=== PATIENT | female | born 1980 | race Caucasian/White ===

== ENCOUNTER 2020-05-01 08:37 | Outpatient (CLI) | payer BC, SELFPAY ==
[2020-05-01 09:09] LABS: Basophils Percent Auto 0.5 % (0.2-1.2); Eosinophils Absolute Auto 0.1 K/mm3 (0-0.3); Eosinophils Percent Auto 1.8 % (0-4.4); Hematocrit 41.3 % (37.0-47.0); Lymphocytes Absolute Auto 2.58 K/mm3 (0.9-3.2); Lymphocytes Percent Auto 42.9 % (18.3-44.2); Mean Corpuscular HGB Conc 31.5 g/dl (32-36); Mean Corpuscular Hemoglobin 25.1 pg (26-34); Mean Corpuscular Volume 79.7 fl (80-100); Mean Platelet Volume 10.9 fl (7.4-10.4); Monocytes Absolute Auto 0.6 K/mm3 (0.1-0.6); Monocytes Percent Auto 9.8 % (2.6-8.5); Neutrophils Absolute Auto 2.7 K/mm3 (1.3-6.7); Platelet Count Result 229 k/mm3 (150-375); Red Blood Count 5.18 M/mm3 (4.2-5.4); Red Cell Distribution Width 15.3 % (11.5-14.5)
[2020-05-01 09:22] LABS: Alanine Aminotransferase 23 U/L (4-35); Albumin Level 4.5 g/dL (3.5-5.1); Alkaline Phosphatase 54 U/L (38-126); Anion Gap 8 mmol/L (8-16); Aspartate Amino Transferase 25 U/L (14-36); Bilirubin,Total 0.4 mg/dL (0.2-1.3); Blood Urea Nitrogen 18 mg/dL (7-17); Calcium 8.9 mg/dL (8.4-10.2); Carbon Dioxide 26 mmol/L (22-30); Chloride 105 mmol/L (98-107); Cholesterol 190 mg/dL (0-200); Estimated Glomerular Filt Rate > 60; Glucose 90 mg/dL (65-105); HDL Direct 78 mg/dL; Potassium 4.1 mmol/L (3.4-5.0); Sodium 139 mmol/L (137-145); Triglycerides 93 mg/dL (<150)
[2020-05-01 09:33] LABS: LDL Cholesterol Direct 85 mg/dL
== END 2020-05-01 08:38 | disposition home or self-care (01) ==
PROVIDERS: PCP Internal Medicine; Visit Provider Nurse Practitioner
DX: Z13.228 Encounter for screening for other metabolic disorders (principal); Z13.220 Encounter for screening for lipoid disorders
CPT/HCPCS: 36415; 80053; 80061; 85025

== ENCOUNTER → 2020-05-16 09:49 | Outpatient (CLI) | payer BC, SELFPAY ==
--- NOTE | ~2020-05-16 | MM_ITS ---
EXAMINATION: MM screening [facility] BI w jayson HISTORY: Screening TECHNIQUE: Craniocaudal and mediolateral oblique 3-D tomosynthesis images were obtained and synthetic 2-D images were generated. CAD analysis was submitted and interpreted. COMPARISON: Comparison to multiple prior studies sequentially, with oldest reviewed study dated 02/16. BREAST PARENCHYMAL COMPOSITION: The breasts are heterogeneously dense, which may obscure small masses . FINDINGS: Stable benign-appearing fat-containing mass in the lower inner quadrant of the right breast . Stable right breast calcifications. There is no evidence of suspicious mass, calcification, or arch itectural distortion to suggest malignancy in either breast. There has been no suspicious interval ch allison. IMPRESSION: 1. No mammographic evidence of malignancy. 2. Recommend routine screening mammography in one year. BI-RADS Category 2: Benign finding(s). Reviewed, dictated and finalized at location A. HER DUSTER WINDER
== END ==
DX: Z12.31 Encounter for screening mammogram for malignant neoplasm of breast (principal)
CPT/HCPCS: 77063; 77067

== ENCOUNTER 2022-07-23 17:29 | Emergency (ER) | payer OTHER, SELFPAY ==
--- NOTE | ~2022-07-23 | XR_ITS ---
XR chest 2V DATE: 07/23/2022 18:10 INDICATION: Chest pain, palpitations, shortness of breath, chest tightness/pressure TECHNIQUE: PA and lateral views COMPARISON: None FINDINGS: There are bilateral calcified pulmonary granulomas. No pulmonary infiltrate or consolidatio n, pleural effusion or pulmonary vascular congestion or pneumothorax. Normal heart size. No hilar or mediastinal enlargement. Included skeletal structures are unremarkable. IMPRESSION: No active cardiopulmonary disease Reviewed, dictated and finalized at location A.
--- NOTE | 2022-07-23 17:31 | ECG_ITS ---
Measurements Intervals [place] Rate: 65 P: 54 IL: 162 QRS: 3 QRSD: 86 T: 25 QT: 381 QTc: 399 Interpretive Statements SINUS RHYTHM WITH SINUS ARRHYTHMIA POOR R-WAVE PROGRESSION BORDERLINE ECG NO PREVIOUS ECG AVAILABLE FOR COMPARISON Electronically Signed On 07-24-2022 15:06:16 CDT by Jovany Marrero M.D.
[2022-07-23 17:34] VITALS: BP 152/87; PULSE 84; RESP 18; TEMP 36.5; O2SAT 100
[2022-07-23 17:51] LABS: Basophils Percent Auto 0.6 % (0.2-1.2); Eosinophils Absolute Auto 0.2 K/mm3 (0-0.3); Eosinophils Percent Auto 2.4 % (0-4.4); Hemoglobin 12.8 g/dL (12.0-15.0); Immature Granulocyte Absolute 0.01 K/mm3 (0.00-0.031); Immature Granulocyte Percent A 0.2 % (0-0.5); Lymphocytes Absolute Auto 2.55 K/mm3 (0.9-3.2); Lymphocytes Percent Auto 40.9 % (18.3-44.2); Mean Corpuscular Hemoglobin 27.6 pg (26-34); Mean Corpuscular Volume 86.4 fl (80-100); Mean Platelet Volume 9.8 fl (7.4-10.4); Monocytes Absolute Auto 0.4 K/mm3 (0.1-0.6); Monocytes Percent Auto 7.1 % (2.6-8.5); Neutrophils Absolute Auto 3.1 K/mm3 (1.3-6.7); Neutrophils Percent Auto 48.8 % (45.5-73.1); Platelet Count Result 248 k/mm3 (150-375); Red Blood Count 4.63 M/mm3 (4.2-5.4); White Blood Count 6.2 K/mm3 (4.5-10.0)
[2022-07-23 18:01] LABS: Alanine Aminotransferase 16 U/L (6-35); Albumin Level 4.6 g/dL (3.5-5.1); Alkaline Phosphatase 71 U/L (38-126); Anion Gap 10 mmol/L (8-16); Aspartate Amino Transferase 24 U/L (14-36); Bilirubin,Total 0.5 mg/dL (0.2-1.3); Blood Urea Nitrogen 15 mg/dL (7-17); Calcium 8.8 mg/dL (8.4-10.2); Carbon Dioxide 21 mmol/L (22-30); Chloride 104 mmol/L (98-107); Estimated CRCL calculation 75 ml/min; Estimated Glomerular Filt Rate > 60; Glucose 97 mg/dL (65-110); Lipase 47 U/L (23-300); Sodium 135 mmol/L (137-145)
[2022-07-23 18:06] LABS: INR 1.1; Prothrombin Time 13.4 Seconds (11.1-14.7)
[2022-07-23 18:07] LABS: Partial Thromboplastin Time 28.7 SECONDS (22.3-36.8)
[2022-07-23 18:12] LABS: Troponin I < 0.012 ng/mL (0.000-0.034)
[2022-07-23 19:24] VITALS: BP 124/74; PULSE 83; RESP 18; TEMP 36.6; O2SAT 100
--- NOTE | 2022-07-23 19:27 | PC.NURSE ---
Pt asked for updates and how long wait is. Pt states she feels better and asked if she can go home. Advised pt that there is still an order to redraw her 2nd cardiac lab at 2044 but we cannot hold her here if she wants to go. Pt states that she wants to go home because she feels better. Instructed pt to seek immediate medical attention if she develops new/worsening pain, SOB, nausea, vomiting, dizziness, or sweating. Pt verbalized understanding and ambulated out of department with steady gait.
== END 2022-07-23 19:47 | disposition left against medical advice (07) ==
PROVIDERS: Emergency Provider Emergency Medicine; PCP Physician Assistant
DX: R00.2 Palpitations (principal)
CPT/HCPCS: 36415; 71046; 80053; 83690; 84484; 85025; 85610; 85730; 93005; 99199

== ENCOUNTER 2022-08-16 15:41 | Emergency (ER) | payer OTHER, SELFPAY ==
[2022-08-16] VITALS (10 sets, daily range): BP systolic 119–145; BP diastolic 78–88; PULSE 58–81; RESP 12–22; TEMP 36.7; O2SAT 99–100
--- NOTE | ~2022-08-16 | XR_ITS ---
EXAMINATION: XR chest 2V Exam Date/Time: 08/16/2022 16:30 CDT HISTORY: chest pressure AND PAIN FOR 3 WKS PROGRESSIVELYGETTING WORSE Comparison: 07/23/2022. RESULT: Lines, tubes, and devices: None. Lungs and pleura: Bilateral calcified granulomas, otherwise clear. Cardiomediastinal silhouette: Stable. Other: No acute osseous or upper abdominal finding. IMPRESSION: No acute cardiopulmonary process. Reviewed, dictated and finalized at location K.
--- NOTE | 2022-08-16 15:42 | ECG_ITS ---
Measurements Intervals [place] Rate: 73 P: 59 FL: 156 QRS: 23 QRSD: 79 T: 32 QT: 354 QTc: 392 Interpretive Statements SINUS RHYTHM DELAYED PRECORDIAL R/S TRANSITION BASELINE ARTIFACT- V5 BORDERLINE ECG COMPARED TO ECG 07/23/2022 17:36:24 NO SIGNIFICANT CHANGES Electronically Signed On 08-16-2022 16:48:44 CDT by Conrad Rendon D.O.
[2022-08-16 16:19] LABS: Basophils Percent Auto 0.5 % (0.2-1.2); Eosinophils Absolute Auto 0.1 K/mm3 (0-0.3); Eosinophils Percent Auto 2.1 % (0-4.4); Hematocrit 39.9 % (37.0-47.0); Hemoglobin 13.1 g/dL (12.0-15.0); Immature Granulocyte Absolute 0.01 K/mm3 (0.00-0.031); Immature Granulocyte Percent A 0.2 % (0-0.5); Lymphocytes Absolute Auto 1.89 K/mm3 (0.9-3.2); Lymphocytes Percent Auto 33.2 % (18.3-44.2); Mean Corpuscular HGB Conc 32.8 g/dl (32-36); Mean Corpuscular Hemoglobin 28.1 pg (26-34); Mean Corpuscular Volume 85.6 fl (80-100); Mean Platelet Volume 9.8 fl (7.4-10.4); Monocytes Absolute Auto 0.5 K/mm3 (0.1-0.6); Monocytes Percent Auto 8.6 % (2.6-8.5); Neutrophils Absolute Auto 3.2 K/mm3 (1.3-6.7); Neutrophils Percent Auto 55.4 % (45.5-73.1); Platelet Count Result 211 k/mm3 (150-375); Red Blood Count 4.66 M/mm3 (4.2-5.4); Red Cell Distribution Width 14.6 % (11.5-14.5); White Blood Count 5.7 K/mm3 (4.5-10.0)
[2022-08-16 16:33] LABS: Partial Thromboplastin Time 27.8 SECONDS (22.3-36.8); Prothrombin Time 13.5 Seconds (11.1-14.7)
[2022-08-16 16:35] LABS: Alanine Aminotransferase 20 U/L (6-35); Albumin Level 4.5 g/dL (3.5-5.1); Alkaline Phosphatase 56 U/L (38-126); Anion Gap 8 mmol/L (8-16); Aspartate Amino Transferase 23 U/L (14-36); Bilirubin,Total 0.5 mg/dL (0.2-1.3); Blood Urea Nitrogen 14 mg/dL (7-17); Calcium 8.9 mg/dL (8.4-10.2); Carbon Dioxide 25 mmol/L (22-30); Chloride 104 mmol/L (98-107); Estimated CRCL calculation 84 ml/min; Estimated Glomerular Filt Rate > 60; Glucose 119 mg/dL (65-110); Lipase 39 U/L (23-300); Potassium 3.9 mmol/L (3.4-5.0); Sodium 137 mmol/L (137-145)
[2022-08-16 16:46] LABS: Troponin I < 0.012 ng/mL (0.000-0.034)
[2022-08-16 19:43] LABS: Troponin I < 0.012 ng/mL (0.000-0.034)
[2022-08-16 19:57] LABS: Magnesium 2.1 mg/dL (1.6-2.3)
[2022-08-16 20:29] LABS: D Dimer 0.27 ug/mL (<0.48)
--- NOTE | 2022-08-16 20:33 | ED.CHESTPAIN ---
HPI - Chest Pain General Chief Complaint: Chest Pain Stated Complaint: chest pressure Time Seen by Provider: 08/16/22 19:13 Source: patient, RN notes reviewed and old records reviewed Mode of arrival: ambulatory Limitations: no limitations History of Present Illness HPI narrative: This is a 41 year old female with history of anxiety and depression who presents for evaluation of palpitations and shortness of breath. PAtient states she has been having feeling of breathlessness for 3 weeks. She feels like she can not get a good breath. She reports she has continued to be able to exercise because it is not worse with exercise. She also reports she feels her heart beating, but she denies feeling that is is skipping Related Data Home Medications Medication Instructions Recorded Confirmed ibuprofen 200 mg capsule 200 mg PO Q6H PRN 05/07/19 10/28/21 Allergies Allergy/AdvReac Type Severity Reaction Status Date / Time No Known Allergies Allergy Verified 08/16/22 19:09 Review of Systems Constitutional: Constitutional: Denies weakness Cardiovascular: Cardiovascular: Denies syncope, Reports rapid heart rate, Denies irregular heart rhythm, Denies leg edema and Reports dyspnea Respiratory: Respiratory: Denies chest congestion, Denies hemoptysis, Denies excessive phlegm production and Denies dyspnea Gastrointestinal: Gastrointestinal: Denies abdominal pain, Denies hematochezia, Denies diarrhea and Denies vomiting Genitourinary: Genitourinary: Denies hematuria and Denies dysuria Musculoskeletal: Musculoskeletal: Denies joint swelling, Denies loss of height and Denies muscle weakness Neurologic: Denies syncope, Denies focal weakness and Denies weakness Psychiatric: Psychiatric: Reports anxiety [facility] Past Medical History Medical History (Updated 08/17/22 @ 00:00 by Background Daemon) Anxiety Depression Ruptured intervertebral disc Surgical History Surgical History H/O knee surgery H/O prior ablation treatment H/O tubal ligation Hx of LASIK [place] teeth removed Family History Family History Grandparent Acute myocardial infarction Pancreatic cancer Bladder cancer Cancer Social History Social History Smoking status: Current some day smoker Tobacco type: cigarettes Alcohol intake: current Drinks per week: 6 Alcohol use details: Pt drinks monthly. Substance use: never Exam Narrative: GENERAL: Well-appearing, well-nourished, and in no acute distress. HEAD: Normocephalic, atraumatic EYES: PERRLA and EOMI, conjunctiva clear without discharge THROAT:Mucous membranes moist, Oropharynx normal without erythema, exudate, peritonsillar swelling or fluctuance NECK: Supple, without lymphadenopathy or mass RESPIRATORY: No respiratory distress, Airway patent, Respirations non-labored, Clear to auscultation without rales, rhonchi or wheeze HEART: Regular rate and rhythm. No murmur heard. Normal peripheral pulses. ABDOMEN: Soft, nontender, nondistended, normal active bowel sounds. No masses. No rebound or guarding, No organomegaly. EXTREMITIES: No edema, normal strength with full range of motion. SKIN: Warm, dry, normal color without rash NEURO: Alert and oriented x3. CN 2-12 grossly intact. No focal deficits. PSYCH: Normal mood and affect. Course Reevaluation(s) Reevaluation #1: I Discussed with patient that labs, EKG and chest xray unremarkable. D dimer negative. Symptoms may be related to anxiety. WE discussed trail of xanax and she would like to try. She will also follow up with PCP Date: 08/16/22 Time: 20:36 Vital Signs Vital signs: Vital Signs Temperature 98.0 F 08/16/22 16:14 Pulse Rate 81 08/16/22 16:14 Respiratory Rate 14 08/16/22 16:14 Blood Pressure 145/88 H 08/16/22 16:14 Pulse Oximetry 100
== END 2022-08-16 20:47 | disposition home or self-care (01) ==
PROVIDERS: Emergency Medicine; Emergency Provider General Practice; PCP Physician Assistant
DX: R06.00 Dyspnea, unspecified (principal); F17.210 Nicotine dependence, cigarettes, uncomplicated; F41.9 Anxiety disorder, unspecified; F32.A Depression, unspecified
CPT/HCPCS: 36415; 71046; 80053; 83690; 83735; 84484; 85025; 85380; 85610; 85730; 93005; 99284

== ENCOUNTER 2022-08-26 10:25 | Outpatient (CLI) | payer OTHER, SELFPAY ==
--- NOTE | 2022-08-26 | EST_ITS ---
Patient Info Name: Giselle Gotti Age: 41 years : 1980 Gender: Female Ht: 64 in Wt: 178 lbs BSA: 1.94 m2 Exam Date: 08/26/2022 10:52 AM Exam Location: [facility] Stress Patient Status: Outpatient Admit Date: 08/26/2022 Staff Ordering Physician: LeathaNicole PA-C Attending Provider: LeathaNicole PA-C Exercise Technologist: Victoria Paulino RDCS Nurse: KIRBY QUEEN NP Exam Type: CA stress test treadmill Study Info Indications R07.9 - Chest pain, unspecified An exercise stress test was performed. Summary 1. No abnormal ST/T wave changes diagnostic of ischemia with exercise. 2. Occasional PVCs. 3. Exercise capacity very good at >10 METS. Protocol: [place] Stress ECG Details Stage: REST Duration (min): 1 min : 12 sec Speed (mph): 0.0 Grade (%): 0 HR (bpm): 76 SBP (mmHg): 139 DBP (mmHg): 75 METS: --- Stage: REST Duration (min): 5 min : 46 sec Speed (mph): 0.0 Grade (%): 0 HR (bpm): 87 SBP (mmHg): 139 DBP (mmHg): 75 METS: --- Stage: STAGE 1 Duration (min): 1 min : 0 sec Speed (mph): 1.7 Grade (%): 10 HR (bpm): 120 SBP (mmHg): 139 DBP (mmHg): 75 METS: --- Stage: STAGE 1 Duration (min): 2 min : 0 sec Speed (mph): 1.7 Grade (%): 10 HR (bpm): 129 SBP (mmHg): 139 DBP (mmHg): 75 METS: --- Stage: STAGE 1 Duration (min): 3 min : 0 sec Speed (mph): 1.7 Grade (%): 10 HR (bpm): 129 SBP (mmHg): 116 DBP (mmHg): 60 METS: --- Stage: STAGE 2 Duration (min): 1 min : 0 sec Speed (mph): 2.5 Grade (%): 12 HR (bpm): 141 SBP (mmHg): 116 DBP (mmHg): 60 METS: --- Stage: STAGE 2 Duration (min): 2 min : 0 sec Speed (mph): 2.5 Grade (%): 12 HR (bpm): 145 SBP (mmHg): 134 DBP (mmHg): 67 METS: --- Stage: STAGE 2 Duration (min): 3 min : 0 sec Speed (mph): 2.5 Grade (%): 12 HR (bpm): 149 SBP (mmHg): 134 DBP (mmHg): 67 METS: --- Stage: STAGE 3 Duration (min): 1 min : 0 sec Speed (mph): 3.4 Grade (%): 14 HR (bpm): 154 SBP (mmHg): 150 DBP (mmHg): 67 METS: --- Stage: STAGE 3 Duration (min): 2 min : 0 sec Speed (mph): 3.4 Grade (%): 14 HR (bpm): 156 SBP (mmHg): 150 DBP (mmHg): 67 METS: --- Stage: STAGE 3 Duration (min): 3 min : 0 sec Speed (mph): 3.4 Grade (%): 14 HR (bpm): 159 SBP (mmHg): 146 DBP (mmHg): 68 METS: --- Stage: STAGE 4 Duration (min): 0 min : 10 sec Speed (mph): 4.2 Grade (%): 16 HR (bpm): 159 SBP (mmHg): 146 DBP (mmHg): 68 METS: --- Stage: RECOVERY Duration (min): 0 min : 49 sec Speed (mph): 0.0 Grade (%): 0 HR (bpm): 145 SBP (mmHg): 146 DBP (mmHg): 68 METS: --- Stage: RECOVERY Duration (min): 1 min : 49 sec Speed (mph): 0.0 Grade (%): 0 HR (bpm): 115 SBP (mmHg): 146 DBP (mmHg): 68 METS: --- Stage: RECOVERY Dur
== END 2022-08-26 10:26 | disposition home or self-care (01) ==
LOC: ANHCARD 10:26
PROVIDERS: PCP Physician Assistant; Visit Provider Physician Assistant
DX: R07.9 Chest pain, unspecified (principal)
CPT/HCPCS: 93017

== ENCOUNTER → 2023-02-14 10:24 | Outpatient (CLI) | payer OTHER, SELFPAY ==
--- NOTE | ~2023-02-14 | XR_ITS ---
XR hand LT min 3V DATE: 02/14/2023 10:34 INDICATION: Pain at third and fourth metacarpophalangeal joints for 3 months. No injury. TECHNIQUE: 3 views COMPARISON: None FINDINGS: There is mild narrowing at the first, second and fifth metacarpophalangeal joints. No fracture or dislocation, periosteal reaction or bone destruction, erosive change or chondrocalcino sis is detected. IMPRESSION: Mild degenerative change Reviewed, dictated and finalized at location B. IMPRESSION: Mild degenerative change
== END ==
PROVIDERS: PCP Physician Assistant; Visit Provider Physician Assistant
DX: M79.642 Pain in left hand (principal)
CPT/HCPCS: 73130

== ENCOUNTER 2025-01-06 09:57 | Emergency (ER) | payer OTHER, SELFPAY ==
--- NOTE | ~2025-01-06 | XR_ITS ---
X-rays left ankle Indication: Injury, pain Comparison: None Technique: 4 views left ankle Findings/Impression: 1. No acute fracture or dislocation left ankle. 2. Soft tissue swelling along lateral malleolus. 3. Possible small chronic avulsion fracture medial malleolus. Reviewed, dictated and finalized at location R.
--- NOTE | 2025-01-06 10:01 | ED.LOWEXIN ---
HPI - Extremity Injury (Lower) General Chief Complaint: Extremity Injury, Lower Stated Complaint: LT Ankle Injury Time Seen by Provider: 01/06/25 10:00 Source: patient Mode of arrival: ambulatory Limitations: no limitations History of Present Illness HPI Narrative: Giselle is a 44-year-old female patient presenting to the clinic today with complaints of left lateral ankle pain/injury. She reports stepped in a hole yesterday and twisted her ankle. Is having pain over the left lateral ankle with localized swelling. Rates the pain currently 10/25. Has taken ibuprofen for her pain and applied ice and elevated her ankle last night. Related Data Home Medications ?Medication ?Instructions ?Recorded ?Confirmed ?Last Taken ?Type ibuprofen 200 mg capsule 200 mg PO Q6H PRN 05/07/19 10/28/21 Unknown History fluoxetine 20 mg capsule mg 01/06/25 Unknown History Allergies Allergy/AdvReac Type Severity Reaction Status Date / Time No Known Allergies Allergy Verified 01/06/25 10:00 Review of Systems Review of Systems: Pertinent positives per HPI. Patient denies any fever, chills, rash, headache, visual changes, dizziness, cough, runny nose, sore throat, shortness of breath, chest pain, palpitations, nausea, vomiting, diarrhea, constipation, abdominal pain, or any urinary issues. [facility] Past Medical History Medical History Anxiety Ruptured intervertebral disc Depression Surgical History Surgical History Hx of LASIK H/O prior ablation treatment H/O tubal ligation [place] teeth removed H/O knee surgery Family History Family History Grandparent Acute myocardial infarction Pancreatic cancer Bladder cancer Cancer Social History Social History Smoking status: Current some day smoker Tobacco type: cigarettes Alcohol intake: current Drinks per week: 6 Alcohol use details: Pt drinks monthly. Substance use: never Comments At the time of my signature, I reviewed and agree with the nursing past medical, surgical, social, and family history. There is no relevant family history pertinent to the patient complaint. Exam Narrative: General: Well-developed, well nourished, in no apparent distress Head: Normocephalic, atraumatic. Cardio: Regular rate and rhythm, s1 and s2 normal, no murmur appreciated. Resp: Clear to auscultation bilaterally, no rhonchi, rales, wheezing or rubs. Musculoskeletal: No deformity, left lateral ankle tender to palpation with localized swelling, grossly normal range of motion, muscle strength strong and equal, peripheral pulse strong, no cyanosis, normal gait and station Course Course Emergency Course: Portions of this record may have been created with voice recognition software. Level of Care: [facility] [place] Visit Vital Signs Vital signs: Vital Signs Temperature 36.4 C 01/06/25 10:05 Pulse Rate 70 01/06/25 10:05 Respiratory Rate 18 01/06/25 10:05 Blood Pressure 124/76 01/06/25 10:05 Pulse Oximetry 100 01/06/25 10:05 Oxygen Delivery Room Air 01/06/25 10:05 Temperature 36.4 C 01/06/25 10:05 Pulse Rate 70 01/06/25 10:05 Respiratory Rate 18 01/06/25 10:05 Blood Pressure 124/76 01/06/25 10:05 Pulse Oximetry 100 01/06/25 10:05 Oxygen Delivery Room Air 01/06/25 10:05 Vital signs reviewed MDM - Extremity Injury (Lower) MDM Narrative Medical decision making narrative: At the time of visit patient is resting comfortably on the exam table. Patient appears to be nontoxic. Complaints of left lateral ankle pain/injury. She reports stepped in a hole yesterday and twisted her ankle. Is having pain over the left lateral ankle with localized swelling. Rates the pain currently 7/10. Has taken ibuprofen for her pain and applied ice and elevated her ankle last night. X-ray of the left ankle ordered Diagnostics: X-ray of the left ankle was performed and is negative for any acute fracture or malalignment. Plan: I suspect patient has left ankle sprain. Chele wrap and ice pack was given to the patient. Supportive measures were discussed with the patient and they voiced understanding discharge instructions and agrees to treatment plan. Return precautions reviewed Differential Diagnosis Differential diagnosis: Likely ankle sprain and strain and ankle fracture Imaging Data Radiologist's impression: [address] [address] XRay Report Signed Patient: Giselle Gotti : 1980 MR#: [id number] Age: 44 Acct:[id number] Loc: [facility] ADM Date: 01/06/25Attending Dr: Ordering Physician: Soham Hernandez APRN Date of Service: 01/06/25 Procedure(s): XR ankle LT min 3V Accession Number(s): [id number] cc: Soham Hernandez APRN; Leatha, Nicole LUCIO~ X-rays left ankle Indication: Injury, pain Comparison: None Technique: 4 views left ankle Findings/Impression: 1. No acute fracture or dislocation left ankle. 2. Soft tissue swelling along lateral malleolus. 3. Possible small chronic avulsion fracture medial malleolus. Reviewed, dictated and finalized at location R. Please be advised this is a medical document. It is intended for [id number] communication. It is written in medical language and may contain unfamiliar abbreviations or verbiage. Medical documents are intended to carry relevant information, facts as evident, and the clinical opinion of the practitioner at the time of the encounter. This report may have been done utilizing a voice recognition system. Attempts have been made to correct errors. However, there may be uncorrected grammatical, spelling, and recognition errors present. The file time of this note does not necessarily represent the time of service. Dictated By: Petros Altman MD 01/06/25 1030 Signed By: <Electronically signed by Petros Altman MD in OV> 01/06/25 1032 Discharge Plan Discharge Clinical Impression: Left ankle sprain Qualifiers: Encounter type: initial encounter Involved ligament of ankle: unspecified ligament Qualified Code(s): S93.402A - Sprain of unspecified ligament of left ankle, initial encounter Patient Disposition: Home Condition: Stable Instructions: Antibiotic Form, Ankle Sprain (ED), Ankle Stirrup Splint (ED) Additional Instructions: X-rays are negative for any acute fracture or malalignment. Rest, ice, elevate, and wear chele wrap as directed Tylenol/motrin for pain as discussed. Gradually bear weight No running or sports until healed. Follow up with your PCP if symptoms persist more than 1 week. Patient Language: [place] Islander Prescriptions: No Action fluoxetine 20 mg capsule ibuprofen 200 mg capsule 200 mg PO Q6H PRN alprazolam [Xanax] 0.25 mg tablet 0.25 mg PO BID PRN (Reason: anxiety) Qty: 10 0RF bupropion HCl 150 mg tablet sustained-release 12 hr See Rx Instructions .ROUTE .COMPLEX Qty: 60 2RF Dose Instruction: TAKE 1 TABLET BY MOUTH TWICE DAILY Rx Instructions: TAKE 1 TABLET BY MOUTH TWICE DAILY alprazolam [Xanax] 0.25 mg tablet 0.25 mg PO DAILY PRN (Reason: anxiety) Qty: 2 0RF Rx Instructions: Please take 1 tablet 30 minutes prior to flying. Follow-up/Referrals: Leatha,KHADIJAH Rivera [Primary Care Provider, Unknown] Time of Disposition: 10:36 Quality NIHSS Nursing Documentation ED NIHSS nursing documentation: reviewed/agree
--- NOTE | 2025-01-06 10:02 | ED.LOWEXIN ---
HPI - Extremity Injury (Lower) General Chief Complaint: Extremity Injury, Lower Stated Complaint: LT Ankle Injury Time Seen by Provider: 01/06/25 10:00 Source: patient and RN notes reviewed Mode of arrival: ambulatory Limitations: no limitations Related Data Home Medications ?Medication ?Instructions ?Recorded ?Confirmed ?Last Taken ?Type ibuprofen 200 mg capsule 200 mg PO Q6H PRN 05/07/19 10/28/21 Unknown History fluoxetine 20 mg capsule mg 01/06/25 Unknown History Allergies Allergy/AdvReac Type Severity Reaction Status Date / Time No Known Allergies Allergy Verified 01/06/25 10:00 Review of Systems Review of Systems: CONSTITUTIONAL: Denies malaise, chills, sweats, or fever. SKIN: Denies rash or itching, open skin, laceration, abrasion, redness, warmth, swelling. MUSCULOSKELETAL: Reports left knee pain NEUROLOGIC: Denies numbness, weakness All systems reviewed & are unremarkable except as noted in HPI and below PMFSH Past Medical History Medical History Anxiety Ruptured intervertebral disc Depression Surgical History Surgical History Hx of LASIK H/O prior ablation treatment H/O tubal ligation [place] teeth removed H/O knee surgery Family History Family History Grandparent Acute myocardial infarction Pancreatic cancer Bladder cancer Cancer Social History Social History Smoking status: Current some day smoker Tobacco type: cigarettes Alcohol intake: current Drinks per week: 6 Alcohol use details: Pt drinks monthly. Substance use: never Comments At time of signature, agree with nursing past medical, surgical, social and family history. There is no relevant family history pertinent to the presenting complaint Exam Narrative: GENERAL: Well-appearing, well-nourished, and in no acute distress. HEAD: Normocephalic, atraumatic. EYES: PERRLA, conjunctivae clear NECK: Supple. CHEST: Speaks in full sentences. No respiratory distress. HEART: Regular rate and rhythm. Normal and equal peripheral pulses. EXTREMITIES: [Xxx] has grossly normal strength and sensation, grossly normal range of motion. No edema or ecchymosis. 5/5 strength with [xxx] flexion and extension. Normal sensation with sensitivity to light touch and pain. No point tenderness. No open wounds, no skin tenting, no devitalized tissue or atrophy, no trophic changes, no obvious deformity, alignment normal, nearby joints and structures intact. Distal pulses palpable and equal bilaterally, skin warm, dry, pink. Capillary refill less than 3 seconds. SKIN: Warm, dry, no rash. NEURO: Alert and oriented x3. PSYCH: Normal mood and affect Course Course Emergency Course: Patient is aware of diagnosis, understands and agrees to treatment plan. Anticipatory guidance given. Patient agrees to follow-up as directed and is aware of reasons to seek care at the emergency department. Portions of this record may have been created with voice recognition software Level of Care: Express Care Visit Vital Signs Vital signs: Reviewed. MDM - Extremity Injury (Lower) MDM Narrative Medical decision making narrative: The patient was evaluated by myself in the express care. History is obtained from patient who is an independent historian and physical exam was performed.? Available medical records were reviewed at this time. ? Exam findings show no acute concerns or changes; patient is non-toxic appearing and is in no distress. Patient is appropriate for outpatient treatment and follow-up. ? I have evaluated and discussed social determinants of health with the patient that could potentially impact subsequent diagnosis and treatment plans. ? Patients injury and pain is consistent with musculoskeletal etiology. No signs of neurological or vascular compromise on exam. Compartments and tissues are soft without signs of compartment syndrome. Pain is felt appropriate for further evaluation on an outpatient basis. Critical Care Time Critical Care Time Critical Care Time: No Discharge Plan Discharge Patient Language: Icelandic Prescriptions: No Action fluoxetine 20 mg capsule ibuprofen 200 mg capsule 200 mg PO Q6H PRN alprazolam [Xanax] 0.25 mg tablet 0.25 mg PO BID PRN (Reason: anxiety) Qty: 10 0RF bupropion HCl 150 mg tablet sustained-release 12 hr See Rx Instructions .ROUTE .COMPLEX Qty: 60 2RF Dose Instruction: TAKE 1 TABLET BY MOUTH TWICE DAILY Rx Instructions: TAKE 1 TABLET BY MOUTH TWICE DAILY alprazolam [Xanax] 0.25 mg tablet 0.25 mg PO DAILY PRN (Reason: anxiety) Qty: 2 0RF Rx Instructions: Please take 1 tablet 30 minutes prior to flying. Follow-up/Referrals: Leatha,KHADIJAH Rivera [Primary Care Provider, Unknown]
--- OUTSIDE RECORDS SUMMARY | 2025-01-06 10:02 | XMS_ITS | Clinical Summary ---
Author Organization [facility] Address [address] [place] [address] Care Team Providers Care Silver Designer Name Role Phone Tyrel Chadwick MD Primary Care Provider [phone] Allergies No known active allergies Medications * This document contains information received from the source organization and may not represent a complete record from that organization. 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 06/03/2014 Overview (02/24/2016): IMO Regulatory Update R1-2016 Resolved Problems Problem Noted Date Diagnosed Date Resolved Date Urinary retention 06/03/2014 06/03/2014 Family History Medical History Relation Name Comments Cancer Maternal Grandfather leukemi a Cancer Maternal Grandmother bile du ct Cancer Paternal Grandmother pancrea tic Anesth Problems Neg Hx Angina before 56 Neg Hx CABG before 56 Neg Hx Diabetes Neg Hx AZ before 56 Neg Hx PCI before 56 Neg Hx Sudden before 55 without obvious cause Neg Hx Relation Name Status Comments Father Alive Maternal Grandfather Maternal Grandmother Mother Alive Paternal Grandfather Paternal Grandmother Sister 1 Alive Sister 2 Alive Sister 3 Alive Social History Tobacco Use Types Packs/Day Years Used Date Smoking Tobacco: Former Cigarettes Q uit: 10/16/2012 Smokeless Tobacco: Never Alcohol Use Standard Drinks/Week Comments Yes 0 (1 standard drink = 0.6 oz pur e alcohol) occ Alcohol Use Answer Date Recorded Frequency of Alcohol Consumption Not on file 10/04/2020 Average Number of Drinks Not on file 021 Frequency of Binge Drinking Not on file 09/16 Alcohol Use Status Yes 10/04/2020 Average alcohol consumption Not on file 09/16 Comments No Sex and Gender Information Value Date Recorded Sex Assigned at Not on file Legal Sex Female 5:07 AM DIRECTOR OF RETAIL OPERATIONS Gender Identity Not on file Sexual Orientation Not on file Last Filed Vital Signs Vital Sign Reading Time Taken Comments Blood Pressure 130/70 10/01/2019 1:51 PM CDT Pulse 65 03/01/2016 1:51 AM DIRECTOR OF RETAIL OPERATIONS Temperature 36.9 C (98.4 F) 03/01/2016 1:51 AM DIRECTOR OF RETAIL OPERATIONS Respiratory Rate 18 03/01/2016 1:51 AM DIRECTOR OF RETAIL OPERATIONS Oxygen Saturation 98% 03/01/2016 1:51 AM DIRECTOR OF RETAIL OPERATIONS Inhaled Oxygen Concentration - - Weight 78.5 kg (173 lb) 10/01/2019 1:51 PM CDT Height 163.8 cm (5' 4.5) 10/01/2019 1:51 PM CDT Body Mass Index 29.24 10/01/2019 1:51 PM CDT Plan of Treatment Health Maintenance Due Date Last Done Comments Hepatitis C Screening ages 18 to 79 once 1981 MMR VACCINES (1 of 1 - Standard series) 1982 DEPRESSION SCREENING 1993 Varicella Vaccine (1 of 2 - 13+ 2-dose series) 1994 HPV VACCINES (1 - 3-dose series) 1996 ADULT TETANUS 2000 HEPATITIS B VACCINES (1 of 3 - 19+ 3-dose series) 2000 YEARLY WELLNESS EXAM 09/30/2020 10/01/2019, 09/23/19 19 CERVICAL CANCER SCREENING 09/22/20212018, 10/02/2012, 09/03/2011, Additional history exists BREAST CANCER SCREENING 2021 05/16/2020 Influenza Vaccine 11/16/2024 COVID-19 Immunization ( season) 2024 Zoster Vaccine (Recombinant Vaccine) (1 of 2) 11/19/2031 HIV Screening Completed 12/14/2010 HEPATITIS A VACCINES Aged Out No long er eligible based on patient's age to complete this topic HIB VACCINES Aged Out No longer eligi ble based on patient's age to complete this topic IPV VACCINES Aged Out No longer eligi ble based on patient's age to complete this topic MENINGOCOCCAL VACCINE Aged Out No young chandana eligible based on patient's age to complete this topic Meningococcal B Vaccine Aged Out No l onger eligible based on patient's age to complete this topic Pneumococcal Vaccine: Peds to 50 & At-Risk Patients Aged Out No longer eligi ble based on patient's age to complete this topic ROTAVIRUS VACCINES Aged Out No longer eligible based on patient's age to complete this topic Medical Devices Implanted Type Area Power And Recovery Supervisor Device Identifier Shelf Expiration Date Model / Serial / Lot Floseal Hemostatic Needle Free [id number] - [id number] Implanted:Qty: 1 on 08/01/2014 by Zechariah Langley MD at [facility] Adhesive Right: Spine Lumbar [employer] 09/16/2015 [id number] / / [id number] Procedures Procedure Name Priority Date/Time Associated Diagnosis Comments MAMMO SCREENING BILATERAL - DIGITAL W IBETH Routine 05/16/2020 Screening mammogram, encounter for CYTOLOGY, PAP (THIN PREP) Routine 09/22/2018 12:00 AM CDT HIV 1 AND 2 COMBO ANTIGEN/ANTIBODY Routine 12/14/2010 2:06 PM CDT from Last 3 Months or Most Recently Relevant to Health Maintenance Results * MAMMO SCREENING BILATERAL - DIGITAL W IBETH (05/16/2020) Anatomical Region Laterality Modality Breast Bilateral Mammography us Roni Sims DO [facility] IMG MAMMO ORDERABLES Final Result * CYTOLOGY, PAP (THIN PREP) (09/22/2018 12:00 AM CDT) 09/22/2018 09/26/2018 Narrative TAMTRON - 10/11/2018 3:42 PM CDT CASE: [id number] PATIENT: GISELLE GOTTI SPECIMEN SOURCE: Cervical CLINICAL INFORMATION: Routine Screening; HPV, Women > 30 yrs SPECIMEN: A. THIN PREP PAP Imaging Directed Cytology PRIOR PAP SMEAR DIAGNOSES: DATE PATHOLOGY# DIAGNOSIS PHYSICIAN 10/04/12 [id number] OLYA SIMS 09/06/11 [id number] OLYA SIMS 07/24/10 [id number] OLYA SIMS GENERAL CATEGORIZATION: Negative for intraepithelial lesion or malignancy. Inflammation present. SPECIMEN ADEQUACY: Satisfactory for evaluation. Interpretation performed by Rosmery VILLEGAS([facility]). Electronically signed 10/11/2018 11:06:26 AM [address] [place] [address] HPV RESULTS: Negative for High Risk HPV by TMA Nucleic acid amplification detects the E6/E7 viral messenger RNA of the high risk HPV types 16, 18, 31, 33, 35, 39, 45, 51, 52, 56, 58, 59, 66 and 68 associated with cervical cancer and its precursor lesions. Cross-reactivity with low-risk HPV genotypes 26, 67, 70 and 82 may occur. Sensitivity may be affected by specimen collection, stage of infection and the presence of interfering substances. HPV results should be interpreted in conjunction with laboratory and clinical data. This test is intended for medical purposes only. HPV testing should not be used for screening of atypical squamous cells of undetermined significance (ASCUS) in women under age 21. HPV Addendum #1 performed by Lisa VILLEGAS([facility]). Electronically signed 10/11/2018 3:42:[address] [place] [id number] Roni Sims DO PATHOLOGY/CYTOLOGY ORDERABLES Edited Result - Final TAMTRON * HIV ANTIBODY (1 + 2) (12/14/2010 2:06 PM CDT) HIV-1 and HIV-2 Antigen/Antib odies NONREACTIVE (NEGATIVE) [facility]QUEST HIV Comment SEE NOTES [facility]QUEST Comment: THIS ASSAY HAS NOT BEEN FDA CLEARED OR APPROVED FOR THE SCREENING OF BLOOD OR PLASMA DONORS. TEST PERFORMED USING [employer] CHEMILUMINESCENT [employer]CHN[employer]. CURRENT METHODS FOR THE DETECTION OF HIV 1 AND/OR 2 ANTIBODIES MAY NOT DETECT ALL INFECTED INDIVIDUALS. 12/14/2010 2:06 PM CDT 12/14/2010 6:09 PM CDT us Roni Sims DO IMMUNOLOGY ORDERABLES Final Re sult [facility]QUEST from Last 3 Months or Most Recently Relevant to Health Maintenance Insurance ANTHEM/BCBS Member Subscriber Plan / Payer (Ef fective 2011-Present) Name:Ledy Gottiily Yesi Relation to Subscriber:Spouse Name:SANCHEZ GOTTI Date of :1980 (Home) (Work) Address: [address] [place] [address] [place] [address] Payer ID:[id number] (NAIC) Type:CONTRACTED Address: [address] ANTHEM/BCBS Member Subscriber Plan / Payer (Ef fective 2011-Present) Name:Shen Giselle Yesi Relation to Subscriber:Spouse Name:SANCHEZ GOTTI Date of :1980 (Home) (Work) Address: [address] [place] [address] [place] [address] Payer ID:[id number] (NAIC) Type:CONTRACTED Address: [id number] Advance Directives * Full Code (Latest Code Status on File) Date Activated Date Inactivated Comments 08/01/2014 11:12 AM 08/01/2014 5:11 PM * Full Code Date Activated Date Inactivated Comments 08/01/2014 8:14 AM 08/01/2014 11:12 AM * Full Code Date Activated Date Inactivated Comments 06/01/2014 7:34 AM 06/03/2014 12:14 PM Care Teams Silver Designer Relationship Specialty Start Date End Date Tyrel Chadwick MD PCP - General 12/24/09
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
[2025-01-06 10:05] VITALS: BP 124/76; PULSE 70; RESP 18; TEMP 36.4; O2SAT 100
== END 2025-01-06 10:38 | disposition home or self-care (01) ==
PROVIDERS: Emergency Provider Nurse Practitioner Family; PCP Physician Assistant
DX: S93.402A Sprain of unspecified ligament of left ankle, initial encounter (principal); X50.1XXA Overexertion from prolonged static or awkward postures, initial encounter; F17.210 Nicotine dependence, cigarettes, uncomplicated; F41.9 Anxiety disorder, unspecified; F32.A Depression, unspecified
CPT/HCPCS: 73610; 99213; G0463